=== PATIENT | male | born 1935 | race Caucasian/White ===

== ENCOUNTER 2017-06-04 10:36 | Emergency (ER) | payer MEDICARE, OTHER ==
[~2017-06-04] VITALS: Ht 172.7 cm; Wt 72.1 kg
--- OUTSIDE RECORDS SUMMARY | ~2017-06-04 | XMS | Encounter Summary ---
Demographics + + + | Address | [address] | | | [place] [address] | + + + | Home Phone | | + + + | Preferred Language | Unknown | + + + | Marital Status | | + + + | Catholic Affiliation | Unknown | + + + | Race | White | + + + | Ethnic Group | Not or | + + + Author + + + | Author | [facility] | + + + | Organization | [facility] | + + + | Address | Unknown | + + + | Phone | Unavailable | + + + Support + + + + + | Name | Relationship | Address | Phone | + + + + + | Kandi Nobles | ECON | [address] | | | | | [place] | | | | | [address] | | + + + + + Care Team Providers + +------+ + | Care Globe Tester Name | Role | Phone | + +------+ + | Luly Jerome | PCP | | + +------+ + Reason for Visit + + + | Reason | Comments | + + + | Lab Draw | | + + + Benefits Check (Routine) + +--------+ + + + + | Status | Reason | Specialty | Diagnoses / | Referred By | Referred To | | | | | Procedures | Contact | Contact | + +--------+ + + + + | Authorized | | Hematology | Diagnoses | [place] | [employer] [facility] | | | | Malignancy | Multiple | Emeli Moreno MD | [address] | | | | | myeloma not | [address] | | | | | having | [address] | | | | | achieved | Rd | Mailcode: | | | | | remission | [place], [place] | [id number] | | | | | Procedures | [address] | [place] | | | | | [place] | Phone: | Pavilion | | | | | PATIENT | [phone] | [place], [place] | | | | | LEVEL [address] | Fax: | [address] | | | | | | [phone] | Phone: | | | | | | | [phone] | | | | | | | Fax: | | | | | | | [phone] | + +--------+ + + + + Encounter Details +--------+ + + + + | Date | Type | Department | Care Team | Description | +--------+ + + + + | 04/25/ | Diagnostic | Center for | | Lab Draw | | 2018 | Visit | Hematologic | | | | | | Malignancies at | | | | | | [facility] | | | | | | [address] | | | | | | [address] | | | | | | Mailcode: [id number] | | | | | | Scottie Hoffmann | | | | | | [place], [place] | | | | | | [address] | | | | | | [phone] | | | +--------+ + + + + Social History + +-------+ +--------+------+ | Tobacco Use | Types | Packs/Day | Years | Date | | | | | Used | | + +-------+ +--------+------+ | Never Smoker | | | | | + +-------+ +--------+------+ + +---+---+---+ | Smokeless Tobacco: | | | | | Never Used | | | | + +---+---+---+ + + +---------+ + | Alcohol Use | Drinks/We | oz/Week | Comments | | | ek | | | + + +---------+ + | Yes | 1 | 0.6 | | | | Glasses | | | | | of wine | | | + + +---------+ + + + + | Sex Assigned at | Date Recorded | | | | + + + | Not on file | | + + + as of this encounter Progress Notes Jamir Hope MA - 04/25/2017 8:45 AM PSTRight AC accessed with a 23 gauge butterfly nee dle. Labs drawn and sent. Tolerated procedure well. Site dressed with sterile gauze and C oban. Patient scheduled for provider visit today with Dr. Nichols. Jamir Hope MA in this encounter Plan of Treatment +--------+ + + + + | Date | Type | Specialty | Care Team | Description | +--------+ + + + + | 10/24/ | Diagnostic | Hematology | | | | 2017 | Visit | Malignancy | | | +--------+ + + + + | 10/24/ | Office | Hematology | Loretta Nichols MD | | | 2018 | Visit | Malignancy | [address] | | | | | | [address] | | | | | | [place], [place] | | | | | | [address] | | | | | | [phone] | | | | | | | | +--------+ + + + + as of this encounter Results CMP, POC (BMP+LFT) (04/25/2017 9:40 AM) + +---------+ + | Component | Value | Ref Range | + +---------+ + | SODIUM, POC | 136 | 134 - 143 mmol/L | + +---------+ + | POTASSIUM, POC | 4.6 | 3.4 - 5.0 mmol/L | + +---------+ + | TOTAL CO2, POC | 25 | 22 - 29 mmol/L | + +---------+ + | CHLORIDE, POC | 103 | 97 - 108 mmol/L | + +---------+ + | GLUCOSE, POC | 91 | 70 - 99 mg/dL | + +---------+ + | CALCIUM TOTAL, POC | 9.0 | 8.6 - 10.2 mg/dL | + +---------+ + | BUN, POC | 21 (H) | 6 - 20 mg/dL | + +---------+ + | CREATININE, POC | 1.0 | 0.7 - 1.3 mg/dL | + +---------+ + | ALK PHOS, CMP POC | 65 | 43 - 92 U/L | + +---------+ + | ALT, CMP POC | 29 | 0 - 60 U/L | + +---------+ + | AST, CMP POC | 36 | 0 - 41 U/L | + +---------+ + | BILIRUBIN TOTAL, CMP | 0.9 | 0.3 - 1.2 mg/dL | | POC | | | + +---------+ + | ALBUMIN, CMP POC | 3.1 (L) | 3.5 - 4.7 g/dL | + +---------+ + | PROTEIN TOTAL, CMP | 8.1 (H) | 6.1 - 7.9 g/dL | | POC | | | + +---------+ + + + + | Specimen | Performing Laboratory | + + + | Blood | [facility], POINT OF CARE TESTS [address] | | | [place] [address] | + + + CBC+DIFF,POC (04/25/2017 9:22 AM) + + + + | Component | Value | Ref Range | + + + + | WBC POC | 3.9 | 3.5 - 10.8 10*3/uL | + + + + | RBC POC | 3.60 (L) | 4.50 - 6.00 10*6/uL | + + + + | HGB POC | 11.6 (L) | 13.5 - 17.5 g/dL | + + + + | HCT POC | 33.8 (L) | 41.0 - 53.0 % | + + + + | MCV POC | 93.9 | 80.0 - 96.0 fL | + + + + | MCH POC | 32.2 | 28.5 - 32.3 pg | + + + + | MCHC POC | 34.3 | 33.0 - 35.5 g/dL | + + + + | RDW SD, POC | 43.3 | 35.1 - 46.3 fL | + + + + | PLT POC | 179 | 150 - 400 10*3/uL | + + + + | MPV POC | 9.5 (L) | 9.7 - 12.3 fL | + + + + | NEUTROPHIL% POC | 69.5 | 50.0 - 70.0 % | + + + + | LYMPH% POC | 15.5 (L) | 18 - 42 % | + + + + | MONO %, POC | 11.3 (H) | 3.5 - 9.0 % | + + + + | EOS %, POC | 3.4 (H) | 1.0 - 3.0 % | + + + + | BASO %, POC | 0.3 | 0.0 - 2.0 % | + + + + | NEUTROPHIL# POC | 2.7 | 1.8 - 7.7 10*3/uL | + + + + | LYMPH# POC | 0.6 (L) | 1.0 - 4.8 10*3/uL | + + + + | MONO #, POC | 0.4 | 0.1 - 0.9 10*3/uL | + + + + | EOS #, POC | 0.1 | 0.0 - 0.5 10*3/uL | + + + + | BASO #, POC | 0.0 | 0.0 - 0.1 10*3/uL | + + + + + + + | Specimen | Performing Laboratory | + + + | Blood | [facility] POINT [facility] CARE TESTS [address] | | | [place] [address] | + + + TROPONIN I, PLASMA (04/25/2017 9:11 AM) + +-------+ + | Component | Value | Ref Range | + +-------+ + | TROPONIN I | <0.02 | <0.80 ng/mL | + +-------+ + + + + | Specimen | Performing Laboratory | + + + | Blood | [facility], CORE [address] | | | [place] [address] | + + + NT-PRO BNP (04/25/2017 9:11 AM) + +-------+ + | Component | Value | Ref Range | + +-------+ + | NT-PRO BNP | 61 | <449 pg/mL | + +-------+ + + + + | Specimen | Performing Laboratory | + + + | Blood | [facility], CORE [address] | | | [place] [address] | + + + VITAMIN D, 25-HYDROXY, SERUM (04/25/2017 9:11 AM) + +-------+ + | Component | Value | Ref Range | + +-------+ + | VITAMIN D 25 HYDROXY | 48.1 | 30 - 80 ng/mL | + +-------+ + + + + | Specimen | Performing Laboratory | + + + | Blood | [facility], CORE [address] | | | [place] [address] | + + + + + | Narrative | + + | Reference Interval: 0-18years: Deficiency: <20 ng/mL | | Optimum level: >or=20 | | ng/mL >18years: | | Deficiency: <20 ng/mL | | Insufficiency: 20-29 ng/mL Optimum Level: 30-80 ng/mL | | High: 81-150 ng/ml | | Toxic: >150 ng/mL | + + IMMUNOFIXATION, SERUM (04/25/2017 9:11 AM) + + + + | Component | Value | Ref Range | + + + + | IMMUNOFIXATION, | Monoclonal Protein Found | | | SERUM | | | + + + + | M PROTEIN ID | M Protein: (A)Comment: IgG Lambda | | + + + + + + + | Specimen | Performing Laboratory | + + + | Blood | [facility] [id number] [place] [address] | | | [address] | + + + FREE LIGHT CHAINS, SERUM (04/25/2017 9:11 AM) + + + + | Component | Value | Ref Range | + + + + | KAPPA LT CHAIN, | 32.8 (H) | 3.3 - 19.4 mg/L | | SERUM | | | + + + + | LAMBDA LT CHAIN, | 63.6 (H) | 5.7 - 26.3 mg/L | | SERUM | | | + + + + | KAPPA/LAMBDA RATIO | 0.52Comment: Kidney disease elevates normal | 0.26 - 1.65 ratio | | | serum free light chain and | | | | freekappa/lambda light chain ratio levels. | | | | This elevation can be ashigh as 10 fold. A | | | | reference range for free K/L ratio of | | | | 0.37-3.1should be used in patients with | | | | renal disease. An isolated findingof | | | | elevated free light chain levels or | | | | increased ratio in patientswithout evidence | | | | of monoclonal gammopathy on SPEP, UPEP and | | | | IFEis not indicative of a monoclonal | | | | gammopathy in renal failurepatients with a | | | | glomerular filtration rate ofless than 15 | | | | ml/min/1.73 m2. | | + + + + + + + | Specimen | Performing Laboratory | + + + | Blood | [facility] [address] [place], [place] | | | [address] | + + + PROTEIN ELECTROPHORESIS, SERUM, WITH REFLEX TO IMMUNOFIXATION (04/25/2017 9:11 AM) + + + + | Component | Value | Ref Range | + + + + | TOTAL PROTEIN, SERUM | 7.8 | 5.5 - 8.0 gm/dL | | - SPEP | | | + + + + | GAMMA %, SPEP | 2.5 | % | + + + + | GAMMA, SERUM - SPEP | 0.20 (L) | 0.50 - 1.50 gm/dL | + + + + | BETA % SPEP | 39.0 | % | + + + + | BETA, SERUM - SPEP | 3.04 (H) | 0.60 - 1.20 gm/dL | + + + + | ALPHA-2 %, SPEP | 8.0 | % | + + + + | ALPHA-2, SERUM - | 0.62 | 0.50 - 0.90 gm/dL | | SPEP | | | + + + + | ALPHA-1 %, SPEP | 1.1 | % | + + + + | ALPHA-1, SERUM - | 0.09 (L) | 0.10 - 0.40 gm/dL | | SPEP | | | + + + + | ALBUMIN %, SPEP | 49.4 | % | + + + + | ALBUMIN,SERUM - SPEP | 3.85 | 3.00 - 5.00 gm/dL | + + + + | M PROTEIN | 2.6 | gm/dL | | CONCENTRATION, SERUM | | | + + + + | SPEP COMMENTS | There is no significant change in | | | | monoclonal proteins compared to the prior | | | | study.Comment: Interpretation By: Carole | | | | Dominique MD | | + + + + | M PROTEIN ID | M Protein: (A)Comment: IgG Lambda | | + + + + + + + | Specimen | Performing Laboratory | + + + | Blood | [facility] [address] [place], [place] | | | [address] | + + + IGM, SERUM (04/25/2017 9:11 AM) + +--------+ + | Component | Value | Ref Range | + +--------+ + | IGM SERUM | 14 (L) | 40 - 230 mg/dL | + +--------+ + + + + | Specimen | Performing Laboratory | + + + | Blood | [facility] [address] [place], [place] | | | [address] | + + + IGG, SERUM (04/25/2017 9:11 AM) + + + + | Component | Value | Ref Range | + + + + | IGG SERUM | 3096 (H) | 700 - 1600 mg/dL | + + + + + + + | Specimen | Performing Laboratory | + + + | Blood | [facility] [id number] [place] [address], [place] | | | [address] | + + + IGA, SERUM (04/25/2017 9:11 AM) + +--------+ + | Component | Value | Ref Range | + +--------+ + | IGA SERUM | 35 (L) | 70 - 400 mg/dL | + +--------+ + + + + | Specimen | Performing Laboratory | + + + | Blood | [facility] [id number] [place] [address], [place] | | | [address] | + + + in this encounter Visit Diagnoses + + | Diagnosis | + + | Multiple myeloma not having achieved remission (HCC) - Primary | + + | Multiple myeloma, without mention of having achieved remission | + +"
--- OUTSIDE RECORDS SUMMARY | ~2017-06-04 | XMS | Encounter Summary ---
Demographics + + + | Address | [address] | | | [place] [address] | + + + | Home Phone | | + + + | Preferred Language | Unknown | + + + | Marital Status | | + + + | Cheondoism Affiliation | Unknown | + + + | Race | White | + + + | Ethnic Group | Not or | + + + Author + + + | Author | [facility] | + + + | Organization | [facility] | + + + | Address | Unknown | + + + | Phone | Unavailable | + + + Support + + + + + | Name | Relationship | Address | Phone | + + + + + | Kandi Nobles | ECON | [address] | | | | | [place] | | | | | [address] | | + + + + + Care Team Providers + +------+ + | Care Cnmt Name | Role | Phone | + +------+ + | Luly Jerome | PCP | | + +------+ + Encounter Details +--------+ + + + + | Date | Type | Department | Care Team | Description | +--------+ + + + + | 05/10/ | Telephone | Center for | Loretta Nichols MD | | | 2018 | | Hematologic | [address] | | | | | Malignancies at | [address] | | | | | [place]ie [place]mann | [place], [place] | | | | | [address] | [address] | | | | | [address] | [phone] | | | | | Mailcode: [id number] | | | | | | [address]ie [address]mann | | | | | | [place], [place] | | | | | | [address] | | | | | | [phone] | | | +--------+ + + + [...] + + + as of this encounter Plan of Treatment +--------+ + + + + | Date | Type | Specialty | Care Team | Description | +--------+ + + + + | 10/24/ | Diagnostic | Hematology | | | | 2018 | Visit | Malignancy | | | +--------+ + + + + | 10/24/ | Office | Hematology | Loretta Nichols MD | | | 2018 | Visit | Malignancy | [address] [facility] | | | | | | [address] | | | | | | [place] | | | | | | [address] | | | | | | [phone] | | | | | | | | +--------+ + + + + as of this encounter Visit Diagnoses Not on filein this encounter"
--- OUTSIDE RECORDS SUMMARY | ~2017-06-04 | XMS | Clinical Summary ---
Demographics + + + | Address | [address] | | | [place] [address] | + + + | Home Phone | | + + + | Preferred Language | Unknown | + + + | Marital Status | | + + + | Shinto Affiliation | Unknown | + + + | Race | White | + + + | Ethnic Group | Not or | + + + Author + + + | Author | [facility] | + + + | Organization | [facility] | + + + | Address | Unknown | + + + | Phone | Unavailable | + + + Support + + + + + | Name | Relationship | Address | Phone | + + + + + | Kandi Nobles | ECON | [address] | | | | | [place] | | | | | [address] | | + + + + + Care Team Providers + +------+ + | Care Interactive Designer Name | Role | Phone | + +------+ + | Luly Jerome | PP | | + +------+ + Source Comments TROY is fully live on both [facility] Ambulatory and [facility] InPatient.[facility] Allergies No Known Allergies Current Medications + + +-------+---------+------+------+-------+ | Prescription | Sig. | Disp. | Refills | Star | End | Statu | | | | | | t | Date | s | | | | | | Date | | | + + +-------+---------+------+------+-------+ | finasteride 5 mg | Take 5 mg by mouth | | 0 | 12/1 | | Activ | | oral tablet | once daily. | | | 4/20 | | e | | | | | | 16 | | | + + +-------+---------+------+------+-------+ | terazosin 5 mg | Take 5 mg by mouth | | 0 | 12/1 | | Activ | | oral capsule | once daily at | | | 4/20 | | e | | | bedtime. | | | 16 | | | + + +-------+---------+------+------+-------+ | FLUoxetine 20 mg | Take 20 mg by mouth | | 0 | 11/1 | | Activ | | oral capsule | once daily. | | | 6/20 | | e | | | | | | 16 | | | + + +-------+---------+------+------+-------+ | naltrexone 4.5 mg | Take 4.5 mg by mouth | | | | | Activ | | oral capsule | once daily. | | | | | e | + + +-------+---------+------+------+-------+ | | Take by mouth two | | | | | Activ | | CYANOCOBALAMIN/FOLIC | times daily. | | | | | e | | ACID (FOLIC ACID | | | | | | | | PLUS B12 ORAL) | | | | | | | + + +-------+---------+------+------+-------+ | THIAMINE HCL | Take 500 mg by mouth | | | | | Activ | | (VITAMIN B-1 ORAL) | two times daily. | | | | | e | + + +-------+---------+------+------+-------+ | QUERCETIN | 500 mL three times | | | | | Activ | | DIHYDRATE, BULK, | daily. | | | | | e | | MISC | | | | | | | + + +-------+---------+------+------+-------+ | VITAMINS A AND D | Take 5,000 Units by | | | | | Activ | | (D-NATURAL 5 ORAL) | mouth once daily. 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 | + + + Encounters +--------+ + + + + | Date | Type | Specialty | Care Team | Description | +--------+ + + + + | 05/10/ | Telephone | | Loretta Nichols MD | | | 2017 | | | | | +--------+ + + + + | 04/25/ | Office | | Loretta Nichols MD | Smoldering multiple | | 2017 | Visit | | | myeloma (SMM) (HCC) | | | | | | (Primary Dx); | | | | | | Idiopathic | | | | | | peripheral | | | | | | neuropathy | +--------+ + + + + | 04/25/ | Diagnostic | | | Lab Draw | | 2017 | Visit | | | | +--------+ + + + + from Last 3 Months Family History + + +------+ + | Medical History | Relation | Name | Comments | + + +------+ + | Cancer | Brother | | melanoma | + + +------+ + | Cancer | Sister | | melanoma | + + +------+ + + +------+--------+ + | Relation | Name | Status | Comments | + +------+--------+ + | Brother | | | | + +------+--------+ + | Mother | | Alive | | + +------+--------+ + | Sister | | | | + +------+--------+ + Social History + +-------+ +--------+------+ | [...] on file | | + + + Last Filed Vital Signs + + + + | Vital Sign | Reading | Time Taken | + + + + | Blood Pressure | 131/70 | 04/25/2017 9:04 AM PST | + + + + | Pulse | 60 | 04/25/2017 9:04 AM PST | + + + + | Temperature | 36.7 C (98 F) | 04/25/2017 9:04 AM PST | + + + + | Respiratory Rate | 20 | 04/25/2017 9:04 AM PST | + + + + | Oxygen Saturation | 94% | 04/25/2017 9:04 AM PST | + + + + | Inhaled Oxygen | - | - | | Concentration | | | + + + + | Weight | 75.1 kg (165 lb 9.1 | 04/25/2017 9:04 AM PST | | | oz) | | + + + + | Height | 174.5 cm (5' 8.7") | 04/25/2017 9:04 AM PST | + + + + | Body Mass Index | 24.66 | 04/25/2017 9:04 AM PST | + + + + Plan of Treatment +--------+ + + + + | Date | Type | Specialty | Care Team | Description | +--------+ + + + + | 10/24/ | Diagnostic | | | | | 2017 | Visit | | | | +--------+ + + + + | 10/24/ | Office | | Loretta Nichols MD | | | 2018 | Visit | | [address] | | | | | | [address] | | | | | | [place], [place] | | | | | | [address] | | | | | | [phone] | | | | | | | | +--------+ + + + + + + + + + | Health Maintenance | Due Date | Last Done | Comments | + + + + + | INFLUENZA VACCINE | | | | | (FLU SHOT) | 7 | | | + + + + + Results CMP, POC (BMP+LFT) (04/25/2017 9:40 AM) [...] | + + + | Blood | [facility] POINT [facility] CARE TESTS [address] | | | [place] [address] | + + + CBC+DIFF,POC (04/25/2017 9:22 [...] | + + + | Blood | [facility] POINT [facility] TESTS [address] | | | [place] [address] | + + + NT-PRO BNP (04/25/2017 9:11 AM) + +-------+ + | Component | Value | Ref Range | + +-------+ + | NT-PRO BNP | 61 | <449 pg/mL | + +-------+ + + + + | Specimen | Performing Laboratory | + + + | Blood | [facility], CORE [address] [facility] [address] | | | [place] [address] | + + + FREE LIGHT CHAINS, [...] | + + + | Blood | [facility] [address] [place], [place] | | | [address] | + + + IMMUNOFIXATION, SERUM (04/25/2017 9:11 AM) [...] | + + + | Blood | [facility] [address] [place], [place] | | | [address] | + + + VITAMIN D, 25-HYDROXY, SERUM (04/25/2017 9:11 AM) + +-------+ + | Component | Value | Ref Range | + +-------+ + | VITAMIN D 25 HYDROXY | 48.1 | 30 - 80 ng/mL | + +-------+ + + + + | Specimen | Performing Laboratory | + + + | Blood | [facility], CORE [address] [facility] | | | [place] [address] | + + + + + | Narrative | + + | Reference Interval: 0-18years: Deficiency: <20 ng/mL | | Optimum level: >or=20 | | ng/mL >18years: | | Deficiency: <20 ng/mL | | Insufficiency: 20-29 ng/mL Optimum Level: 30-80 ng/mL | | High: 81-150 ng/ml | | Toxic: >150 ng/mL | + + TROPONIN I, PLASMA (04/25/2017 9:11 AM) + +-------+ + | Component | Value | Ref Range | + +-------+ + | TROPONIN I | <0.02 | <0.80 ng/mL | + +-------+ + + + + | Specimen | Performing Laboratory | + + + | Blood | [facility], CORE [address] [facility] | | | [place], [place] [address] | + + + IGM, SERUM (04/25/2017 9:11 AM) + +--------+ + | Component | Value | Ref Range | + +--------+ + | IGM SERUM | 14 (L) | 40 - 230 mg/dL | + +--------+ + + + + | Specimen | Performing Laboratory | + + + | Blood | [facility] [address] [place], [place] | | | [address] | + + + IGG, SERUM (04/25/2017 9:11 AM) + + + + | Component | Value | Ref Range | + + + + | IGG SERUM | 3096 (H) | 700 - 1600 mg/dL | + + + + + + + | Specimen | Performing Laboratory | + + + | Blood | [facility] [id number] [place] [address] | | | [address] | + + + IGA, SERUM (04/25/2017 9:11 AM) + +--------+ + | Component | Value | Ref Range | + +--------+ + | IGA SERUM | 35 (L) | 70 - 400 mg/dL | + +--------+ + + + + | Specimen | Performing Laboratory | + + + | Blood | [facility] [address] [place], [place] | | | [address] | + + + PROTEIN ELECTROPHORESIS, SERUM, [...] | + + + | Blood | [facility] [address] [place], [place] | | | [address] | + + + from Last 3 Months
--- OUTSIDE RECORDS SUMMARY | ~2017-06-04 | XMS | Encounter Summary ---
Demographics + + + | Address | [address] | | | [place] [address] | + + + | Home Phone | | + + + | Preferred Language | Unknown | + + + | Marital Status | | + + + | Druze Affiliation | Unknown | + + + | Race | White | + + + | Ethnic Group | Not or | + + + Author + + + | Author | [facility] | + + + | Organization | [facility] | + + + | Address | Unknown | + + + | Phone | Unavailable | + + + Support + + + + + | Name | Relationship | Address | Phone | + + + + + | Kandi Nobles | ECON | [address] | | | | | [place] | | | | | [address] | | + + + + + Care Team Providers + +------+ + | Care Ic Design Manager Name | Role | Phone | + +------+ + | Luly Jerome | PCP | | + +------+ + Reason for Visit + + + | Reason | Comments | + + + | Follow-up visit | | + + + Benefits Check (Routine) + +--------+ + + + + | Status | Reason | Specialty | Diagnoses / | Referred By | Referred To | | | | | Procedures | Contact | Contact | + +--------+ + + + + | Authorized | | Hematology | Diagnoses | [place], | [facility] | | | | Malignancy | Multiple | Emeli Moreno MD | [address] | | | | | myeloma not | [address] | [address] | | | | | having | [facility] | [address] | | | | | achieved | Rd | Mailcode: | | | | | remission | [place], [place] | [id number] | | | | | Procedures | [address] | [place] | | | | | [place] EST | Phone: | Pavilion | | | | | PATIENT | [phone] | [place], [place] | | | | | [address] | Fax: | [address] | | | | | | [phone] | Phone: | | | | | | | [phone] | | | | | | | Fax: | | | | | | | [phone] | + +--------+ + + + + Encounter Details +--------+---------+ + + + | Date | Type | Department | Care Team | Description | +--------+---------+ + + + | 04/25/ | Office | Center for | Loretta Nichols MD | Smoldering multiple | | 2018 | Visit | Hematologic | [address] | myeloma (SMM) (HCC) | | | | Malignancies at | [facility] [address] | (Primary Dx); | | | | [facility] | [facility], [place] | Idiopathic | | | | [address] | [address] | peripheral | | | | [facility] | [phone] | neuropathy | | | | Mailcode: [id number] | | | | | | [facility] | | | | | | [place], [place] | | | | | | [address] | | | | | | [phone] | | | +--------+---------+ + + + Social History + +-------+ [...] + + + as of this encounter Last Filed Vital Signs + + + [...] AM PST | + + + + in this encounter Instructions Patient Instructions - Loretta Nichols MD - 04/25/2017 9:25 AM PSTWe have today discussed possibility of clinical trial for 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 I will call you with results of the blood work in 2 weeks. 2. I think you should get again repeat imaging - if considering the study would defer the i maging till study. 3. Will need repeat urine test but will hold of if interested in study. Link to study: A Study of Subcutaneous Daratumumab Versus Active Monitoring in Participants With High-Risk Smoldering Multiple Myeloma Detailed Description: The study of active monitoring (Arm A) and daratumumab SC (Arm B) in participants with high -risk SMM consists of 3 phases: Screening Phase (up to 28 days), an Active Monitoring Phase or a Treatment Phase of 36 months, and a Follow-up Phase which will continue until , lo st to follow-up, withdrawal of consent, or the End of the Study (approximately 8 years after the first participant is randomized). Active monitoring cycles and treatment cycles are 4 w eeks in length. For all participants, disease evaluations will be performed every 12 weeks u ntil confirmed progressive disease (PD). Participants will undergo tumor assessments, pharma cokinetics, biomarkers and safety evaluations (adverse events, laboratory tests, vital sign measurements, physical examinations, Eastern Cooperative Oncology Group [ECOG] performance s tatus) over the time. https://clinicaltrials.gov/ct2/show/GLE70275575 For any questions related to your care at [facility] please call the electrician front at [phone] an d you will be directed to the appropriate person. - For urgent medical symptoms you will talk to the clinic triage nurse. - For scheduling questions you will talk to the clinical documentation manager. - For all other questions including your Lenalidomide or Pomalidomide prescription, you jarad l speak with Dr. Nichols s medical records specialist, Yumiko Busby. If you are experiencing medical emergency call 911. During after hours, please call [phone] and ask to have the BMT Person Pantograph Watcher paged. in this encounter Progress Notes Loretta Nichols MD - 04/25/2017 9:25 AM PSTFormatting of this note may be different from t ilene original. 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 Anormal proprioception, tripping and dragging feet, this start ed about a year ago.Balance has changed. Wider stance. Had EMG. SMM diagnosis as above Interval history: Over the past year he has been doing quite well. He has learnt to compensate for foot drop and only notices it when going stairs. No numbness, tingling. Very active, walks about 6- 7 mls daily basis, rides exercise 1 hour bike reasonable speed Confusion resolved, last year possibly due antidepressant or depression Is going to have a left hernia repair on Saturday, this was planned during the summer but pre op HR dropped to 30s preop in summer - aborted procedure - enlarged heart, HR low - DEMIAN, tr greg, ECHO - [place] ([facility] [place] Dr. Fernandez He is seeing a guest experience representative/ -[facility] - [place] Feel good, no pain, no SOB, fevers, night sweats. Noticed bulging behind left knee over at least past 2 years but some increase over time, gomez d US and only small amount of fluid found at that time, no pain. Review of Systems: 10 other systems were reviewed and are negative except as noted. Past Medical History: Diagnosis Date Allergic rhinitis BPH (benign prostatic hyperplasia) Depression Jaundice ? tylenol toxicity Past Medical History:Negative Family History Problem Relation Cancer Sister melanoma Cancer Brother melanoma Social History Social History Marital status: Spouse name: N/A Number of children: N/A Years of education: N/A Occupational History Not on file. Social History Main Topics Smoking status: Never Smoker Smokeless tobacco: Never Used Alcohol use 0.6 oz/week 1 Glasses of wine per week Drug use: Unknown Sexual activity: Not on file Other Topics Concern Not on file Social History Narrative 5 healthy adult children Current Outpatient Prescriptions: CYANOCOBALAMIN/FOLIC ACID (FOLIC ACID PLUS B12 ORAL), Luis M e by mouth two times daily., Disp: , Rfl: finasteride 5 mg oral tablet, Take 5 mg by mouth once daily., Disp: , Rfl: 0 FLUoxetine 20 mg oral capsule, Take 20 mg by mouth once daily., Disp: , Rfl: 0 naltrexone 4.5 mg oral capsule, Take 4.5 mg by mouth once daily., Disp: , Rfl: QUERCETIN DIHYDRATE, BULK, MISC, 500 mL three times daily., Disp: , Rfl: terazosin 5 mg oral capsule, Take 5 mg by mouth once daily at bedtime., Disp: , Rfl: 0 THIAMINE HCL (VITAMIN B-1 ORAL), Take 500 mg by mouth two times daily., Disp: , Rfl: VITAMINS A AND D (D-NATURAL 5 ORAL), Take 5,000 Units by mouth once daily., Disp: , Rfl: No Known Allergies Physical Exam: Filed Vitals: 04/25/2017 9:04 AM Height: 1.745 m (5' 8.7") Weight: 75.1 kg (165 lb 9.1 oz) BP: 131/70 Pulse: 60 Temp: 36.7 C (98 F) TempSrc: Oral Resp: 20 SpO2: 94% PainSc: 0 - Zero BMI: 24.66 kg/(m^2) ECOG Status: 0 Gen: pleasant, well developed, well nourished man in no acute distress No scleral icterus or conjunctival pallor Oral cavity: no oropharyngeal erythema, ulcerations, macrolgossia Neck: supple, no JVD Lungs: normal respiratory effort, Clear to auscultation bilaterally Cor: RRR without murmurs Abd: soft w/o HSM, masses or tenderness Ext: no cyanosis/clubbing or edema Psy: appropriate, Normal affect and mood, Hard of hearing Skin: no rash, petechiae or bruising. MSK: no tenderness to palpation over spine, long bones Behind posterior knee fossa- fluctuating fluid pockets on side, no tender no erythema, also some but less size on right side Studies: WBC: 4.1 (12/15)-> 3.0 (02/14) H-> 11.9 PLT: 227 -> 220 Creat: 0.8-> 1.0 Recent Labs 04/25/17 0922 WBC 3.9 RBC 3.60* HB 11.6* HCT 33.8* PLT 179 NEUTROPHILCO 2.7 MONOCYTECO 0.4 EOSCO 0.1 BASOPHILCO 0.0 Recent Labs 04/25/17 0940 NA 136 K 4.6 CL 103 BICARB 25 BUN 21* CR 1.0 GLU 91 CA 9.0 AST 36 ALT 29 AP 65 TBILI 0.9 TP 8.1* ALB 3.1* Imagin: PET/CT negative for bone lesions of soft tissue lesions concerning for Myeloma Impression and Plan: 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 Study interest - if no study likely local PET/CT - if study will do studies as per study criteria Hematology: minimal anemia, non diagnostic for Myeloma. Renal: stable renal fx Confusion reported by 03/2016 - seems mostly resolved (? 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 I appreciate the opportunity to be involved in this patient's care. I will be in touch with you by phone and/or email soon, but please feel free to contact me to discuss these recomm endations. 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
[~2017-06-04 10:36] MED LIST: CLARITIN10 M2 PO; PROSCAR5 MG PO; PROZAC20 MG PO; QUERCETIN DIHYDR1 GM MISC; TERAZOSIN HCL5 MG PO; [UNRECOGNIZED DRUG - OTHER] PO
[2017-06-04] MEDS ORDERED: FINASTERIDE5 MG PO (10:51)
[2017-06-04] MEDS ORDERED: NORCO 5-325 TA1 EACH PO (11:39)
[2017-06-04] MEDS ORDERED: KEFLEX500 MG PO (11:39)
== END 2017-06-04 12:06 | disposition home or self-care (01) ==
LOC: ED 10:36
PROC: 0X9K0ZZ Drainage of Left Hand, Open Approach (ICD-10-PCS; principal; 2017-06-04)
PROC: 0HQGXZZ Repair Left Hand Skin, External Approach (ICD-10-PCS; 2017-06-04)
DX: S62.631A Displaced fracture of distal phalanx of left index finger, initial encounter for closed fracture (principal); S61.311A Laceration without foreign body of left index finger with damage to nail, initial encounter; Z23 Encounter for immunization; Z79.899 Other long term (current) drug therapy; W23.0XXA Caught, crushed, jammed, or pinched between moving objects, initial encounter; Y92.096 Garden or yard of other non-institutional residence as the place of occurrence of the external cause
CPT/HCPCS: 11740; 12001; 73140; 90471; 90715; 99283

== ENCOUNTER 2020-04-11 17:59 | Emergency (ER) | payer MEDICARE, BC ==
[~2020-04-11] VITALS: Ht 172.7 cm; Wt 72.6 kg
[~2020-04-11 17:59] MED LIST changes: +FINASTERIDE5 MG PO; +KEFLEX500 MG PO; +NORCO 5-325 TA1 EACH PO
== END 2020-04-11 18:46 | disposition home or self-care (01) ==
LOC: ED 17:59
DX: S51.812A Laceration without foreign body of left forearm, initial encounter (principal); Z79.899 Other long term (current) drug therapy; W01.0XXA Fall on same level from slipping, tripping and stumbling without subsequent striking against object, initial encounter
CPT/HCPCS: 99283

== ENCOUNTER 2024-06-13 16:48 | Emergency (ER) | payer MEDICARE, BC ==
[~2024-06-13] VITALS: Ht 172.7 cm; Wt 79.8 kg
[2024-06-13] MEDS ORDERED: TRAMADOL HCL50 MG PO (17:06)
[2024-06-13] MEDS ORDERED: HYDROCODON-ACE1 EA10 PO (18:55)
[2024-06-13] MEDS ORDERED: IBUPROFEN 400 MG TAB PO ONE (19:00)
[2024-06-13] MEDS ORDERED: ACETAMINOPHEN 325 MG TAB PO ONE (19:00)
[2024-06-13] MEDS ORDERED: HYDROCODONE/ACETA 5/325 TAB PO ONE (19:00)
[2024-06-13 19:06] VITALS: BP 116/73
== END 2024-06-13 19:06 | disposition home or self-care (01) ==
LOC: ED 16:48
DX: M54.6 Pain in thoracic spine (principal); M54.50 Low back pain, unspecified; C90.00 Multiple myeloma not having achieved remission; Z79.899 Other long term (current) drug therapy
CPT/HCPCS: 72128; 72131; 99283-25; A9270